=== PATIENT | female | born 1935 | race Caucasian/White ===

== ENCOUNTER 2018-08-17 14:19 | Emergency (ER) | payer BC, MEDICARE ==
[~2018-08-17] VITALS: Ht 157.5 cm; Wt 90.6 kg
[~2018-08-17 14:19] MED LIST: AMLODIPINE PO; ASA PO; BENAZEPRIL PO; FLUOXETINE PO; HCTZ PO; LABETALOL PO; LOSA25TA2 PO; METHYLDOPA PO; NIFEDIPINE PO; OMEPRAZOLE PO
[2018-08-17 14:23] VITALS: Ht 157.5 cm; Wt 90.6 kg
[2018-08-17] MEDS ORDERED: PANT40TA3 PO (14:56)
[2018-08-17] MEDS ORDERED: APIX5TAB PO (14:56)
[2018-08-17] MEDS ORDERED: ATOR10TA65 PO (14:56)
[2018-08-17] MEDS ORDERED: METF500T24 PO (14:57)
[2018-08-17] MEDS ORDERED: METO-319 PO (14:57)
[2018-08-17] MEDS ORDERED: SERT50TA6 PO (14:57)
[2018-08-17] MEDS ORDERED: FURO-110 PO (14:58)
[2018-08-17] MEDS ORDERED: LOSA100T15 PO (14:58)
[2018-08-17] MEDS ORDERED: ACETAMINOPHEN 325 MG TAB PO ONE ×3 (15:00→18:00)
--- NOTE | 2018-08-17 15:52 | ERD ---
ER Documentation Chief Complaint Chief Complaint C/O HTN AND H/A TODAY; DENIES CP, NO SOB. HER MED CHANGED RECENTLY. 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 The patient does take Eliquis. No recent falls or injuries. No slurred speech, chest pain, shortness of breath or neuro deficit. Patient recently discontinued amlodipine and initiated a diuretic approximately 1 month ago. Otherwise the patient has no complaints. Headache is mild, gradual in onset, occipital and 3 out of 10. ROS All systems reviewed and are negative except as per history of present illness. Medications Home Meds Reported Medications Furosemide* (Lasix*) 20 Mg Tablet, 20 MG PO DAILY, TAB 08/17/18 Losartan Potassium* (Losartan Potassium*) 100 Mg Tablet, 100 MG PO DAILY, TAB 08/17/18 Metoprolol Succinate* (Toprol XL*) 50 Mg Tab.er.24h, 50 MG PO DAILY, #30 TAB 08/17/18 Metformin Hcl* (Metformin Hcl*) 500 Mg Tablet, 500 MG PO WITH BREAKFAST, #30 TAB 08/17/18 Sertraline Hcl* (Sertraline Hcl*) 50 Mg Tablet, 50 MG PO DAILY, #30 TAB 08/17/18 Pantoprazole* (Protonix*) 40 Mg Tablet.dr, 40 MG PO DAILY, TAB 08/17/18 Apixaban* (Eliquis*) 5 Mg Tablet, 5 MG PO BID, TAB 08/17/18 Atorvastatin Calcium (Atorvastatin Calcium) 10 Mg Tablet, 10 MG PO QHS, #30 TAB 08/17/18 Discontinued Reported Medications [Omeprazole] No Conflict Check, 20 MG PO DAILY 06/13/12 [Nifedipine] No Conflict Check, 30 MG PO BID 06/13/12 [Methyldopa] No Conflict Check, 500 MG PO DAILY 06/13/12 Losartan Potassium* (Cozaar*) 25 Mg Tablet, 100 MG PO DAILY 06/13/12 [Labetalol] No Conflict Check, 100 MG PO BID 06/13/12 [Hctz] No Conflict Check, 25 MG PO DAILY 06/13/12 [Fluoxetine] No Conflict Check, 20 MG PO DAILY 06/13/12 [Benazepril] No Conflict Check, 20 MG PO DAILY 06/13/12 [Asa] No Conflict Check, 81 MG PO DAILY 06/13/12 [Amlodipine] No Conflict Check, 10 MG PO DAILY 06/13/12 Allergies Allergies: Coded Allergies: No Known Allergy (Unverified , 08/17/18) PMhx/Soc History of Surgery: No Anesthesia Reaction: No Hx Neurological Disorder: No Hx Respiratory Disorders: No Hx Cardiac Disorders: Yes (HTN, high cholesterolemia) Hx Psychiatric Problems: Yes (depression) Hx Miscellaneous Medical Probl: No Hx Alcohol Use: No Hx Substance Use: No Hx Tobacco Use: No Smoking Status: Never smoker FmHx Family History: No diabetes Physical Exam Vitals Vital Signs Date Temp Pulse Resp B/P (MAP) Pulse Ox O2 O2 Flow FiO2 Time Delivery Rate 08/17/18 98.5 71 18 198/89 95 Room Air 16:16 (125) 08/17/18 98.5 67 18 202/99 95 14:23 (133) Physical Exam General: Well developed, well nourished, no acute distress Head: Normocephalic, atraumatic. Eyes: Pupils equally reactive, EOM intact ENT: Moist mucous membranes Neck: Supple, no lymphadenopathy Respiratory: Lungs clear bilaterally, no distress Cardiovascular: RRR, no murmurs, rubs, or gallops Abdominal: Soft, non-tender, non-distended, no peritoneal signs : Deferred MSK: No edema, no unilateral swelling, 5/5 strength Neurologic: Alert and oriented, moving all extremities, normal speech, no focal weakness, no cerebellar signs Skin: No rash Psych: Normal mood Results 24 hrs Current Medications Medications Dose Sig/Teresita Start Time Status Last (Trade) Ordered Route PRN Stop Time Admin Dose Reason Admin 650 mg ONCE ONCE 08/17/18 DC 08/17/18 Acetaminophen PO 15:00 14:53 (Tylenol 08/17/18 15:01 Tab) Nicardipine 30 mg ONCE ONCE 08/17/18 DC 08/17/18 HCl PO 16:30 16:27 (Cardene) 08/17/18 16:31 650 mg ONCE ONCE 08/17/18 Cancel Acetaminophen PO 18:00 (Tylenol 08/17/18 18:01 Tab) 650 mg ONCE ONCE 08/17/18 DC 08/17/18 Acetaminophen PO 18:00 17:48 (Tylenol 08/17/18 18:01 Tab) Procedures/MDM EKG, MONITORS, & DIAGNOSTIC IMAGING: CT brain: IMPRESSION: 1. Chronic intracranial changes are present, as above. 2. No acute intracranial abnormality demonstrated. MEDICAL DECISION MAKING: Clinical exam history of very consistent with hypertensive urgency without evidence of endorgan dysfunction. The patient does have a headache, and does take Eliquis therefore CT of the brain would be reasonable. Patient's blood pressure is trending down appropriately. The patient needs to talk to primary care physician given recent change of blood pressure medication and uncontrolled hypertension. ER COURSE: * Patient's blood pressure remains in the 190-200 range, she was given p.o. Cardene with a dramatic improvement. She is asymptomatic and resting comfortably. Headache improved. CT brain negative. * At this point the patient can be safely discharged home. CONSULTATION: None DISPOSITION PLAN: The patient does not have an identifiable emergent medical condition that warrants inpatient hospitalization at this time. The patient is deemed safe for discharge with outpatient follow-up. We discussed follow up with the patient's primary care doctor within 24 to 48 hours as needed. We also discussed return to the emergency room for worsening symptoms or worsening condition. Outpatient referral: None required Discharge Medications: None required Departure Diagnosis: Primary Impression: Hypertensive urgency Additional Impression: Acute headache Headache type: unspecified Intractability: not intractable Qualified Codes: R51 - Headache Condition: Stable JOSE JUAN NEAL MD August 17, 2018 15:52
[2018-08-17] MEDS ORDERED: NICARDipine HCL 30 MG CAPSULE PO ONE (16:30)
[2018-08-17 18:00] VITALS: BP 169/80; PULSE 62; RESP 18
== END 2018-08-17 19:15 | disposition home or self-care (01) ==
LOC: E/R 14:19
DX: I16.0 Hypertensive urgency (principal); I10 Essential (primary) hypertension; Z79.84 Long term (current) use of oral hypoglycemic drugs
CPT/HCPCS: 70450; Z7502; Z7610